=== PATIENT | female | born 1980 | race Two or more races ===

== ENCOUNTER 2020-11-14 09:48 | Emergency (ER) | payer OTHER ==
[~2020-11-14] VITALS: Ht 167.6 cm; Wt 61.2 kg
[2020-11-14] MEDS ORDERED: PRENATABS FA T1 EACH (10:09)
== END 2020-11-14 14:13 | disposition home or self-care (01) ==
LOC: ER 09:48
DX: O20.0 Threatened abortion (principal); Z03.818 Encounter for observation for suspected exposure to other biological agents ruled out

== ENCOUNTER 2023-02-06 10:33 | Outpatient (CLI) | payer OTHER ==
[~2023-02-06 10:33] MED LIST: PRENATABS FA T1 EACH
== END 2023-02-06 11:40 | disposition home or self-care (01) ==
LOC: NST 10:33
PROVIDERS: ATTEND Obstetrics & Gynecology Gynecology
DX: Z34.83 Encounter for supervision of other normal pregnancy, third trimester (principal)

== ENCOUNTER 2023-02-08 12:35 | Outpatient (CLI) | payer OTHER | END 2023-02-08 14:40 | disposition home or self-care (01) | LOC: NST 12:35 | PROVIDERS: ATTEND Obstetrics & Gynecology Gynecology | DX: Z34.83 Encounter for supervision of other normal pregnancy, third trimester (principal) ==

== ENCOUNTER 2023-02-13 13:46 | Inpatient (IN) | payer OTHER ==
[~2023-02-13] VITALS: Ht 167.6 cm; Wt 65.3 kg
== END 2023-02-18 10:43 | disposition home or self-care (01) | DRG 807 ==
LOC: OB/GYN 02-16 08:12 → LDR 02-16 08:12 → OB/GYN 02-16 12:08 → SURG-SUITE 02-26 13:35
PROVIDERS: ADMIT Obstetrics & Gynecology Gynecology; ATTEND Obstetrics & Gynecology Gynecology
PROC: 10E0XZZ Delivery of Products of Conception, External Approach (ICD-10-PCS; principal; 2023-02-16)
PROC: 0KQM0ZZ Repair Perineum Muscle, Open Approach (ICD-10-PCS; 2023-02-16)
PROC: 4A1HXCZ Monitoring of Products of Conception, Cardiac Rate, External Approach (ICD-10-PCS; 2023-02-16)
DX: O70.1 Second degree perineal laceration during delivery (principal); Z37.0 Single live birth; Z3A.38 38 weeks gestation of pregnancy; Z20.822 Contact with and (suspected) exposure to COVID-19